=== PATIENT | male | born 1995 | race Two or more races ===

== ENCOUNTER 2019-04-09 10:33 | Emergency (ER) | payer BC, OTHER ==
[~2019-04-09] VITALS: Ht 185.4 cm; Wt 86.2 kg
[2019-04-09 12:26] LABS: Urine WBC None Seen /hpf (0 - 3)
[2019-04-09 12:34] LABS: Urine Bacteria NONE SEEN /hpf (None Seen); Urine Blood Negative /uL (Negative); Urine Specific Gravity 1.004 (1.001-1.035)
[2019-04-09] MEDS ORDERED: SODIUM CHLORIDE 0.9% 1,000 ML IVB ONE (12:42)
[2019-04-09 13:22] LABS: Alcohol, Urine < 3.0 mg/dL (0-5); Amphetamine Screen, Urine NEGATIVE (NEGATIVE); Barbiturate Scree,Urine NEGATIVE (NEGATIVE); Benzodiazephine Screen, Urine NEGATIVE (NEGATIVE); Cannabinoid Screen, Urine NEGATIVE (NEGATIVE); Cocaine Screen, Urine NEGATIVE (NEGATIVE); Opiate Scree,Urine NEGATIVE (NEGATIVE); Phencyclidine Screen, Urine NEGATIVE (NEGATIVE)
[2019-04-09 13:26] LABS: Salicylate 2.5 mg/dL (2.8-20.0)
[2019-04-09 13:32] LABS: Acetaminophen < 2.0 ug/mL (10-30); Basophils # (auto) 0.1 uL; Basophils % (auto) 0.9 % (0.0-2.0); Eosinophils # (auto) 0 uL; Eosinophils % (auto) 0.2 % (0.0-7.0); Hematocrit 44.1 % (41.0-53.0); Hemoglobin 14.9 g/dL (13.5-17.5); Lymphocytes # (auto) 0.7 uL; Lymphocytes % (auto) 10.6 % (10.0-50.0); Mean Corpuscular Hemoglobin 29.5 pg (28.0-32.0); Mean Corpuscular Hgb Conc. 33.8 g/dL (32.0-36.0); Mean Corpuscular Volume 87.3 fL (80.0-100.0); Monocytes # (auto) 0.3 uL; Monocytes % (auto) 4.5 % (0.0-12.0); Neutrophils # (auto) 5.8 uL; Neutrophils % (auto) 83.8 % (37.0-80.0); Platelet Count (auto) 285 10^3/uL (140-450); Red Blood Cells 5.05 10^6/uL (4.5-5.90); Red Cell Distribution Width 13.4 % (11.8-14.3); White Blood Cell 6.9 10^3/uL (4.4-10.8)
[2019-04-09 13:40] LABS: Albumin 4.2 g/dL (3.4-5.0); BUN/Creatinine Ratio 11.8; Calcium 9.2 mg/dL (8.5-10.1); Magnesium 2.2 mg/dL (1.6-2.6); Potassium 3.7 mmol/L (3.5-5.1)
[2019-04-09 13:44] LABS: Bilirubin, Total 0.7 mg/dL (0.2-1.0); Total Protein 8.1 g/dL (6.4-8.2)
[2019-04-09] MEDS ORDERED: SODIUM CHLORIDE 0.9% 1,000 ML IV ONE (15:15)
[2019-04-09] MEDS ORDERED: LORazepam 2MG/ML-1ML VIAL IV ONE (15:15)
[2019-04-09] MEDS ORDERED: ACETAMINOPHEN 325 MG TAB PO ONE (16:15)
[2019-04-09 17:00] VITALS: BP 121/76
== END 2019-04-09 19:08 | disposition left against medical advice (07) ==
LOC: ER 10:33
DX: F11.23 Opioid dependence with withdrawal (principal); M79.10 Myalgia, unspecified site; R25.1 Tremor, unspecified
CPT/HCPCS: 36415; 71045; 80053; 80307; 80329; 81001; 83735; 85025; 96374; 99284; J2060; J7030